=== PATIENT | female | born 1990 | race Caucasian/White ===

== ENCOUNTER 2023-06-19 22:51 | Emergency (ER) | payer MEDICAID, SELFPAY ==
[2023-06-19 22:52] VITALS: BP 126/72; PULSE 80; RESP 16; TEMP 36.4; O2SAT 98; BMI 35.6
[2023-06-20] MEDS: Ondansetron 4 MG/2 ML Vial IV
[2023-06-20] MEDS: 0.9% Normal Saline (1000mL) 1,000 ML 999 ML IV
[2023-06-20 00:02] LABS: Anion Gap 7 (5-15); BUN 9 mg/dL (7-18); Calcium,Total 9.2 mg/dL (8.5-10.1); Chloride 105 mmol/L (98-107); Creatinine, Serum 0.64 mg/dL (0.55-1.02); EST Glomerular Filtration Rate 114 mL/min (>60); Est Glom Filt Rate - Afr Amer 138 mL/min (>60); Estimated Creatinine Clearance 131.54 ml/min; Glucose 88 mg/dL (74-106); Potassium 3.6 mmol/L (3.5-5.1); Sodium Level 134 mmol/L (136-145)
--- NOTE | 2023-06-20 00:59 | ED.VIS.GI ---
HPI HPI - GI History of Present Illness Chief Complaint: Nausea/Vomiting Informant: patient Narrative Narrative: Patient presents around 7 weeks by dates, she has been vomiting for a couple of weeks and today was an exceptionally bad day and she cannot stop or keep any fluids down despite taking the equivalent of diclegis. Denies any injuries, vaginal bleeding, or abdominal pain other than muscle soreness from all of the vomiting. PFSH PFSH Medical History Endometriosis Home Medications [id number] 1 mg tablet 1 tab PO DAILY 06/19/23 [History Last Taken Unknown] metoclopramide HCl 10 mg tablet 10 mg PO Q6H PRN nausea and vomiting #20 tabs 06/20/23 [Rx Last Taken Unknown] Allergy/AdvReac Type Severity Reaction Status Date / Time No Known Allergies Allergy Verified 06/19/23 22:52 Social History Smoking Status: Former smoker ROS ROS ED Constitutional Constitutional ED: Denies chills or fever(s) Eyes Eyes: Denies change in vision or diplopia ENT ENT ED: Denies rhinorrhea or sore throat Cardiovascular Cardiovascular: Reports lightheadedness; Denies chest pain, palpitations or syncope Respiratory/Chest Respiratory/Chest: Denies cough or dyspnea Gastrointestinal Gastrointestinal: Reports nausea and vomiting; Denies abdominal pain or diarrhea Genitourinary Genitourinary ED: Denies dysuria or hematuria Musculoskeletal Musculoskeletal: Denies back pain or neck pain Integumentary Denies abscess or rash Neurologic Neurologic: Denies headache(s), paresthesias or weakness Psychiatric Psychiatric: Denies anxiety or suicidal thoughts EXAM Physical Exam Const Vital Signs: 06/19/23 22:52 06/20/23 01:20 06/20/23 01:58 Temperature 97.6 F L 97.8 F Temperature Source Temporal Pulse Rate 80 87 86 Respiratory Rate 16 16 16 Blood Pressure 126/72 H 122/73 H 126/74 H Blood Pressure Mean 90 89 91 Pulse Ox 98 99 99 Oxygen Delivery Method Room Air Room Air Positive well nourished and well developed General Appearance ED: well developed and NAD HEENT Reports moist mucous membranes normocephalic and atraumatic Eyes PERRL and EOMs intact bilaterally Neck full ROM and supple Resp normal respiratory effort and clear to auscultation bilaterally Cardio regular rate, regular rhythm and no murmurs GI non-distended GI Narrative: Mild suprapubic tenderness otherwise benign abdomen. No guarding or rebound. Auscultation: normoactive bowel sounds Palpation: soft Back/Spine no CVA tenderness General Back: other FROM Extremity normal to inspection General Extremety ED: Negative for edema, pulses abnormal or tenderness General Extremity: Negative for edema or pulses abnormal Neuro oriented x3, CN's II-XII intact bilaterally and no sensory deficits noted Sensorium / Orientation: awake and alert Motor Exam: strength 5/5 throughout Psych mental status grossly normal and thought process normal Skin no rashes or lesions noted and no wounds MDM MDM MDM Narrative Medical decision making narrative: We started an IV on the patient and gave her a liter of fluid and Zofran 4 mg, she did feel better but was then starting to feel little nauseated again later. Set of electrolytes is remarkably normal. I did a bedside ultrasound. She appears to have twin with 2 different gestational sacs, measuring in the 6.5-7-week range, one of the small poles has a heart rate of around 115 and the other has a heart rate of around 140. Certainly no ectopic . Give her some Reglan, she has an appointment tomorrow with OB in the office. Lab Data Attestation: I reviewed the patient's lab results. Labs: Laboratory Results - last 24 hr 06/19/23 23:35 Sodium 134 L Potassium 3.6 Chloride 105 Carbon Dioxide 22.0 Anion Gap 7 BUN 9 Creatinine 0.64 Estim Creat Clear Calc 131.54 Est GFR (MDRD) Af Amer 138 Est GFR (MDRD) Non-Af 114 BUN/Creatinine Ratio 14.0 Glucose 88 Calcium 9.2 Discharge Plan Triage Chief Complaint: Nausea/Vomiting ED Provider: Royce Palacios Dx/Rx/DC Orders Clinical Impression: Hyperemesis gravidarum, Twin in first trimester Instructions: ED Hyperemesis Gravidarum Prescriptions: New metoclopramide HCl [metoclopramide HCl] 10 mg tablet 10 mg PO Q6H PRN (Reason: nausea and vomiting) Qty: 20 0RF No Action [id number] 1 mg tablet 1 tab PO DAILY Primary Care Provider: Care Physician,No Primary Activity Restrictions/Additional Instructions: Follow-up with your [facility] as scheduled tomorrow. Disposition Disposition: Home, Self Care Discharge Date/Time: 06/20/23 01:59
[2023-06-20] MEDS: Metoclopramide 10 MG/2 ML Vial 5 MG IV (01:17)
[2023-06-20 01:20] VITALS: BP 122/73; PULSE 87; RESP 16; O2SAT 99
[2023-06-20 01:58] VITALS: BP 126/74; PULSE 86; RESP 16; TEMP 36.6; O2SAT 99
== END 2023-06-20 01:59 | disposition home or self-care (01) ==
PROVIDERS: Emergency Provider Emergency Medicine; Visit Provider Emergency Medicine
DX: O21.0 Mild hyperemesis gravidarum (principal); Z3A.01 Less than 8 weeks gestation of pregnancy; Z87.891 Personal history of nicotine dependence
CPT/HCPCS: 80048; 96361; 96374; 96375; 99282; A4216; J2405

== ENCOUNTER 2023-06-27 11:35 | Outpatient (CLI) | payer MEDICAID, SELFPAY ==
[2023-06-27] MEDS: Ondansetron 8 MG in 0.9% Normal Saline (50mL Bag) 50 ML 216 MG IV (12:27)
[2023-06-27] MEDS: 0.9% NaCl Peripheral Flush Adult/Peds IV (12:27)
[2023-06-27] MEDS: Lactated Ringers 1,000 ML 999 ML IV (12:27)
[2023-06-27 12:31] VITALS: BP 116/61; PULSE 71; RESP 16; TEMP 36.8; O2SAT 97; BMI 34.9
[2023-06-27] MEDS: Lactated Ringers 1,000 ML 500 ML IV (14:02)
[2023-06-27 16:31] VITALS: BP 110/60; PULSE 83; RESP 16; TEMP 36.8; O2SAT 95
[2023-06-27 17:48] LABS: Anion Gap 4 (5-15); BUN 10 mg/dL (7-18); BUN/Creat Ratio 16.3 RATIO (10-20); Calcium,Total 8.4 mg/dL (8.5-10.1); Chloride 107 mmol/L (98-107); Creatinine, Serum 0.61 mg/dL (0.55-1.02); EST Glomerular Filtration Rate 121 mL/min (>60); Est Glom Filt Rate - Afr Amer 146 mL/min (>60); Estimated Creatinine Clearance 136.52 ml/min; Glucose 97 mg/dL (74-106); Potassium 3.7 mmol/L (3.5-5.1); Sodium Level 135 mmol/L (136-145); T4 Total, Thyroxin 12.8 ug/dL (4.8-13.9); Thyroid Stim Hormone (TSH) 1.07 uIU/mL (0.358-3.74)
== END 2023-06-27 11:36 | disposition home or self-care (01) ==
LOC: MEDOUTP 11:37
PROVIDERS: Referring Provider Obstetrics & Gynecology; Visit Provider Obstetrics & Gynecology
DX: O21.9 Vomiting of pregnancy, unspecified (principal); R63.4 Abnormal weight loss; O99.891 Other specified diseases and conditions complicating pregnancy; Z3A.11 11 weeks gestation of pregnancy; E86.0 Dehydration; O99.281 Endocrine, nutritional and metabolic diseases complicating pregnancy, first trimester
CPT/HCPCS: 96365; 96361; 80048; 84436; 84443; J7120; A4216; J2405; J3490

== ENCOUNTER 2023-07-27 11:34 | Emergency (ER) | payer MEDICAID, SELFPAY ==
[2023-07-27 11:34] VITALS: BP 140/84; PULSE 95; RESP 16; TEMP 36.3; O2SAT 98; BMI 35.9
--- NOTE | 2023-07-27 11:53 | US_ITS ---
INDICATION: vaginal bleeding, pelvic pain EXAMINATION: Ultrasound US OB Less Than 14 Weeks TECHNIQUE: Transabdominal pelvic ultrasound was performed. Grayscale, spectral waveform, and color flow Doppler evaluation of the adnexa. COMPARISON: No relevant prior comparison study available LMP: [Unknown Beta-hCG: Unknown FINDINGS: UTERUS: . RIGHT OVARY: Not visualized. LEFT OVARY: Not visualized. FREE FLUID: None. INTRAUTERINE GESTATIONAL SAC(s) (size/shape): No intracranial gestational sacs are seen within the membrane the sacs. Twin A: YOLK SAC: Not identified POLE: Identified CRL 1.3 cm. ESTIMATED GESTATION AGE: 7 weeks and 4 days. HEART MOTION: Absent. PLACENTA: Not visualized due to age. SUBCHORIONIC HEMORRHAGE: None. AMNIOTIC FLUID: Qualitatively normal. Twin B: YOLK SAC: Identified POLE: Identified CRL 6.1 cm. ESTIMATED GESTATION AGE: 12 weeks and 4 days. HEART MOTION: 166 BPM. PLACENTA: Anterior SUBCHORIONIC HEMORRHAGE: None. AMNIOTIC FLUID: Qualitatively normal. US/Init OB < 14Wks US IMPRESSION: 1. Dichorionic intrauterine . 2. demise of twin A at approximately 7 weeks and 4 days. 3. Live twin B at approximately 12 weeks and 4 days. ERIBERTO is 02/04/2024. Electronically Signed: Sheng Hernandez MD at 13:56 EDT ,
--- NOTE | 2023-07-27 12:08 | EDS_ITS ---
HPI <NATAN Verdugo - Last Filed: 07/27/23 14:52> HPI - Female History of Present Illness Chief Complaint: Vag Bld, Preg Narrative Narrative: Patient presenting today due to vaginal bleeding and pelvic cramping that started around 5 AM this morning. She reports that she is currently 12 weeks , she did have twins but lost one of them 3 weeks ago after she saw her OB for vaginal bleeding and pelvic cramping. She did have a checkup yesterday with her OB and was told everything was looking good. She is G1, P0. She has not had to change her pad yet today but did pass a large blood clot. She denies any recent illness, fever, chills. PFSH <NATAN Verdugo - Last Filed: 07/27/23 14:52> PFSH Medical History Endometriosis Home Medications ?Medication ?Instructions ?Recorded ?Last Taken ?Type [id number] 1 mg 1 tab PO DAILY 06/19/23 Unknown History tablet metoclopramide HCl 10 mg tablet 10 mg PO Q6H PRN nausea and 06/20/23 Unknown Rx vomiting #20 tabs doxylamine 10 mg-pyridoxine (vit 1 tab PO DAILY 06/27/23 Unknown History B6) 10 mg tablet,delayed release (Diclegis) Allergy/AdvReac Type Severity Reaction Status Date / Time No Known Allergies Allergy Verified 07/27/23 11:36 Social History Smoking Status: Never smoker ROS <NATAN Verdugo - Last Filed: 07/27/23 14:52> ROS ED Constitutional Constitutional ED: Denies chills or fever(s) Cardiovascular Cardiovascular: Denies chest pain Respiratory/Chest Respiratory/Chest: Denies dyspnea Gastrointestinal Gastrointestinal: Reports abdominal pain; Denies nausea or vomiting Genitourinary Genitourinary ED: Denies dysuria Integumentary Denies rash Neurologic Neurologic: Denies weakness EXAM <NATAN Verdugo - Last Filed: 07/27/23 14:52> Physical Exam Const Vital Signs: 07/27/23 11:34 07/27/23 13:34 07/27/23 14:28 Temperature 97.4 F L 98.1 F Temperature Source Temporal Pulse Rate 95 82 59 L Respiratory Rate 16 18 16 Blood Pressure 140/84 H 122/79 H 108/62 Blood Pressure Mean 102 93 77 Pulse Ox 98 97 100 Oxygen Delivery Method Room Air Room Air Positive well nourished, well developed and no apparent distress General Appearance ED: well developed HEENT Reports normocephalic and head/scalp atraumatic Mouth ED: Yes moist mucous membranes normal Eyes PERRL and EOMs intact bilaterally Neck full ROM and supple Chest Wall inspection of chest normal Resp normal respiratory effort and clear to auscultation bilaterally Cardio regular rate and regular rhythm GI soft to palpation, non-distended and no masses GI Narrative: Minimal pelvic tenderness to palpation Palpation: Negative for guarding or rigid Back/Spine normal ROM and normal to inspection Extremity normal to inspection and full ROM Neuro oriented x3, CN's II-XII intact bilaterally, moves all extremities, no focal motor deficits and no sensory deficits noted Sensorium / Orientation: awake and alert Psych mental status grossly normal and thought process normal Skin no rashes or lesions noted and no wounds <Dr. Harish Calix, - Last Filed: 07/27/23 14:35> Physical Exam Const Vital Signs: 07/27/23 11:34 07/27/23 13:34 07/27/23 14:28 Temperature 97.4 F L 98.1 F Temperature Source Temporal Pulse Rate 95 82 59 L Respiratory Rate 16 18 16 Blood Pressure 140/84 H 122/79 H 108/62 Blood Pressure Mean 102 93 77 Pulse Ox 98 97 100 Oxygen Delivery Method Room Air Room Air [facility] <NATAN Verdugo - Last Filed: 07/27/23 14:52> [facility] Narrative Medical decision making narrative: Patient presenting due to vaginal bleeding and pelvic cramping that started around 5 AM this morning. She is currently G1, P0. Transvaginal ultrasound will be obtained as well as labs to rule out leukocytosis, anemia, and assess blood type. Ultrasound shows demise of twin A with a live twin B. Her H&H is stable. Her blood type is a positive. I have encouraged pelvic rest and that she follow-up with her OB in the next 3 to 5 days. Return instructions were given and patient discharged home in stable condition. Lab Data Attestation: I reviewed the patient's lab results. Lab results narrative: WBC 11.5, sodium 134, albumin 2.8, hCG 25176, blood type a positive Labs: Laboratory Results - last 24 hr 07/27/23 12:15 WBC 11.5 H RBC 4.31 Hgb 13.0 Hct 38.7 MCV 89.8 MCH 30.2 MCHC 33.6 RDW Std Deviation 40.3 RDW Coeff of Kaye 12.2 Plt Count 177 MPV 11.8 Immature Gran % (Auto) 0.800 Neut % (Auto) 78.9 H Lymph % (Auto) 14.3 L Dauphin % (Auto) 5.1 Eos % (Auto) 0.6 Baso % (Auto) 0.3 Absolute Neuts (auto) 9.1 H Absolute Lymphs (auto) 1.65 Nucleated RBC % 0 Sodium 134 L Potassium 3.9 Chloride 105 Carbon Dioxide 22.0 Anion Gap 7 BUN 8 Creatinine 0.64 Estim Creat Clear Calc 132.03 Est GFR (MDRD) Af Amer 137 Est GFR (MDRD) Non-Af 114 BUN/Creatinine Ratio 12.4 Glucose 129 H Calcium 8.5 Total Bilirubin 0.20 AST 17 ALT 21 Alkaline Phosphatase 67 Total Protein 6.6 Albumin 2.8 L Globulin 3.8 Albumin/Globulin Ratio 0.7 L HCG, Quant 27311 H Blood Type A POSITIVE Radiography Diagnostic Testing: Clinical Impression(s) from Imaging Studies Obstetrics Ultrasound 07/27/23 11:53 IMPRESSION: 1. Dichorionic intrauterine . 2. demise of twin A at approximately 7 weeks and 4 days. 3. Live twin B at approximately 12 weeks and 4 days. ERIBERTO is 02/04/2024. Electronically Signed: Sheng Hernandez MD at 13:56 EDT , <Dr. Harish Calix, DO - Last Filed: 07/27/23 14:35> [facility] Lab Data Labs: Laboratory Results - last 24 hr 07/27/23 12:15 WBC 11.5 H RBC 4.31 Hgb 13.0 Hct 38.7 MCV 89.8 MCH 30.2 MCHC 33.6 RDW Std Deviation 40.3 RDW Coeff of Kaye 12.2 Plt Count 177 MPV 11.8 Immature Gran % (Auto) 0.800 Neut % (Auto) 78.9 H Lymph % (Auto) 14.3 L Da[place]hin % (Auto) 5.1 Eos % (Auto) 0.6 Baso % (Auto) 0.3 Absolute Neuts (auto) 9.1 H Absolute Lymphs (auto) 1.65 Nucleated RBC % 0 Sodium 134 L Potassium 3.9 Chloride 105 Carbon Dioxide 22.0 Anion Gap 7 BUN 8 Creatinine 0.64 Estim Creat Clear Calc 132.03 Est GFR (MDRD) Af Amer 137 Est GFR (MDRD) Non-Af 114 BUN/Creatinine Ratio 12.4 Glucose 129 H Calcium 8.5 Total Bilirubin 0.20 AST 17 ALT 21 Alkaline Phosphatase 67 Total Protein 6.6 Albumin 2.8 L Globulin 3.8 Albumin/Globulin Ratio 0.7 L HCG, Quant 11218 H Blood Type A POSITIVE Radiography Diagnostic Testing: Clinical Impression(s) from Imaging Studies Obstetrics Ultrasound 07/27/23 11:53 IMPRESSION: 1. Dichorionic intrauterine . 2. demise of twin A at approximately 7 weeks and 4 days. 3. Live twin B at approximately 12 weeks and 4 days. ERIBRETO is 02/04/2024. Electronically Signed: Sheng Hernandez MD at 13:56 EDT , Treatment and Re-Evaluation Narrative: I have personally performed a face to face assessment of the patient and have reviewed the ANTHONY Note. I performed a substantive portion of the visit including all aspects of the following. My ridley findings include: History: Patient presents with pelvic cramping, vaginal bleeding, and passing clots that began today. Patient states that she had noted some cramping in her pelvic area. Patient had been with twins but had a miscarriage of one of the gestations. Patient was concerned that she is having a miscarriage of the other gestation. Patient is approximately 12 weeks . Patient denies any fevers or chills. Patient is 1 para 0. Exam: Vital signs are stable. Patient is afebrile. Patient is in no acute distress. Oral mucosa is pink and moist. Neck is supple. Trachea is midline. There is no JVD. Heart was regular rate and rhythm. Lungs are clear and equal bilaterally. Abdomen is soft. Bowel sounds are normal. There is mild lower abdominal tenderness. There is no rebound or guarding noted. Cranial nerves II through XII are intact. There are no focal motor or sensory deficits noted. Medical Decision Making: Differential diagnosis includes threatened miscarriage, abnormal vaginal bleeding, preeclampsia. CBC will be obtained to assess for leukocytosis, thrombocytopenia, and anemia. Comprehensive metabolic profile will be obtained to assess for hepatic function, renal function, and electrolyte abnormality. Type and Rh will be obtained to assess for blood type status. Quantitative hCG will be obtained to assess for . CBC was reviewed. There is a slight leukocytosis of 11.5. Quantitative hCG was reviewed and was [address]. Blood type was reviewed and was A positive. Comprehensive metabolic profile was reviewed and was essentially within normal limits. Pelvic ultrasound was obtained. There are still 2 gestational sacs in the uterus. There is 1 with demise at approximately 7 weeks. The other 1 is viable at 12 weeks 4 days. The patient was advised of her findings. Patient was instructed on pelvic rest. Patient was instructed to follow-up with her [facility] in 3 to 5 days. Patient was instructed to return if worse in any way. Patient understood and was agreeable with the plan. All questions were answered. Discharge Plan Triage Chief Complaint: Vag Bld, Preg ED Midlevel Provider: Lisa Morel ED Provider: Harish Calix Dx/Rx/DC Orders Clinical Impression: Abnormal vaginal bleeding, , Threatened miscarriage Instructions: Miscarriage Threatened Prescriptions: No Action [id number] 1 mg tablet 1 tab PO DAILY metoclopramide HCl [metoclopramide HCl] 10 mg tablet 10 mg PO Q6H PRN (Reason: nausea and vomiting) Qty: 20 0RF doxylamine-pyridoxine (vit B6) [Diclegis] 10-10 mg tablet,delayed release (DR/EC) 1 tab PO DAILY Primary Care Provider: Care Physician,No Primary Referrals: Care Physician,No Primary [Primary Care Provider] - Activity Restrictions/Additional Instructions: Please follow-up with your OB and return for any worsening of your symptoms. Print Language: Bengali Disposition Disposition: Home, Self Care Discharge Date/Time: 07/27/23 14:28
[2023-07-27 12:24] LABS: Absolute Lymphocyte Count 1.65 X10^3/uL (0.83-4.51); Absolute Neutrophil Count 9.1 X10^3/uL (2.0-7.7); Basophil# 0.03 X10^3/uL; Basophil% 0.3 % (0-1); Eosinophil# 0.07 X10^3/uL; Eosinophils% 0.6 % (0-5); Hematocrit 38.7 % (37-47); Lymphocyte # 1.65 X10^3/ul (0.83-4.51); Lymphocyte % 14.3 % (19-41); Mean Corp Hgb Conc 33.6 g/dL (32-36); Mean Corpuscular Hgb 30.2 pg (27.0-32.0); Mean Corpuscular Volume 89.8 fL (81-99); Mean Platelet Vol. 11.8 fl (6.2-12.0); Monocyte# 0.59 X10^3/uL; Monocyte% 5.1 % (0-10); NRBC Flagged by Analyzer 0 % (0-5); Neutrophil # 9.07 X10^3/uL (2.7-7.7); Neutrophil % 78.9 % (47-70); Platelet Count 177 K/mm3 (150-450); RBC Distribution Width CV 12.2 % (11.6-14.6); RBC Distribution Width SD 40.3 fl (35.1-43.9); Red Blood Count 4.31 M/mm3 (4.2-5.4); White Blood Count 11.5 K/mm3 (4.4-11.0)
[2023-07-27 13:00] LABS: hCG Titer Quant., Serum 41620 mIU/mL (1-3)
[2023-07-27 13:34] VITALS: BP 122/79; PULSE 82; RESP 18; O2SAT 97
[2023-07-27 13:41] LABS: ALB/GLOB Ratio 0.7 RATIO (0.9-2.4); AST(SGOT) 17 U/L (15-37); Alanine Aminotransfer ALT/SGPT 21 U/L (13-56); Albumin, Serum 2.8 g/dL (3.2-5.0); Alkaline Phosphatase 67 U/L (45-117); Anion Gap 7 (5-15); BUN 8 mg/dL (7-18); BUN/Creat Ratio 12.4 RATIO (10-20); Calcium,Total 8.5 mg/dL (8.5-10.1); Chloride 105 mmol/L (98-107); Creatinine, Serum 0.64 mg/dL (0.55-1.02); EST Glomerular Filtration Rate 114 mL/min (>60); Est Glom Filt Rate - Afr Amer 137 mL/min (>60); Estimated Creatinine Clearance 132.03 ml/min; Globulin 3.8 g/dL (2.2-4.2); Glucose 129 mg/dL (74-106); Potassium 3.9 mmol/L (3.5-5.1); Protein, Total 6.6 g/dL (6.4-8.2); Sodium Level 134 mmol/L (136-145)
[2023-07-27 14:28] VITALS: BP 108/62; PULSE 59; RESP 16; TEMP 36.7; O2SAT 100
== END 2023-07-27 14:28 | disposition home or self-care (01) ==
PROVIDERS: Physician Assistant; Emergency Provider Emergency Medicine; Visit Provider Emergency Medicine
DX: O20.0 Threatened abortion (principal); Z3A.12 12 weeks gestation of pregnancy; O31.21X1 Continuing pregnancy after intrauterine death of one fetus or more, first trimester, fetus 1; O30.041 Twin pregnancy, dichorionic/diamniotic, first trimester
CPT/HCPCS: 76801; 80053; 84702; 85025; 86900; 86901; 99282; A4216